=== PATIENT | female | born 1940 | race Caucasian/White ===

== ENCOUNTER 2016-06-03 15:33 | Emergency (ER) | payer OTHER ==
[~2016-06-03] VITALS: Ht 162.6 cm; Wt 77.1 kg
[~2016-06-03 15:33] MED LIST: HYDROCODONE-APA1 TA1 PO; HYDROXYUREA; LEVAQUIN 500 M500 M2 PO
[2016-06-03 16:31] LABS: ABSOLUTE NEUTROPHILS 6.9 thou/uL (1.4-8.2); BASOPHILS 0.2 % (0.0-2.0); EOSINOPHILS 0.8 % (0.0-3.0); HEMATOCRIT 35.8 % (37.0-47.0); LYMPHOCYTES 10.5 % (24.0-44.0); MCH 34.9 pg (26.0-34.0); MCHC 33.6 g/dL (28.0-37.0); MCV 103.9 fL (80.0-100.0); MONOCYTES 4.4 % (1.0-8.0); PLATELET COUNT 638 thou/uL (150-400); POLYS 84.1 % (36.0-66.0); RBC 3.45 mil/uL (4.20-5.00); RDW 19.3 % (10.5-14.5); WBC 8.3 thou/uL (4.0-11.0)
[2016-06-03 16:40] LABS: MANUAL DIFF NO
[2016-06-03 16:49] LABS: CALCIUM 9.6 mg/dL (8.5-10.1); POTASSIUM 3.4 mmol/L (3.5-5.1)
[2016-06-03] MEDS ORDERED: HYDROCHLOROTHIA25 M2 PO (16:49)
[2016-06-03] MEDS ORDERED: HYDREA 500 MG500 M1 PO (16:50)
[2016-06-03 16:54] LABS: ALBUMIN 3.8 g/dL (3.4-5.0); TOTAL BILIRUBIN 1.3 mg/dL (<0.1-1.0); TOTAL PROTEIN 6.7 g/dL (6.4-8.2)
[2016-06-03 17:29] LABS: ANISOCYTOSIS 2+; MACROCYTES 1+
[2016-06-03 17:30] LABS: LARGE PLATELETS OCCASIONAL
== END 2016-06-03 18:27 | disposition home or self-care (01) ==
LOC: ER 15:33
PROVIDERS: Emergency Medicine
DX: R10.11 Right upper quadrant pain (principal); D47.3 Essential (hemorrhagic) thrombocythemia; Z88.0 Allergy status to penicillin

== ENCOUNTER 2019-05-16 09:26 | Emergency (ER) | payer MEDICARE ==
[~2019-05-16] VITALS: Ht 162.6 cm; Wt 72.6 kg
[~2019-05-16 09:26] MED LIST changes: +HYDREA 500 MG500 M1 PO; +HYDROCHLOROTHIA25 M2 PO
[2019-05-16 10:20] LABS: ABSOLUTE NEUTROPHILS 4.7 thou/uL (1.4-8.2); EOSINOPHILS 1.6 % (0.0-3.0); HEMATOCRIT 38.3 % (37.0-47.0); HEMOGLOBIN 12.4 gm/dL (12.0-15.0); LYMPHOCYTES 18.6 % (24.0-44.0); MCH 35.3 pg (26.0-34.0); MCHC 32.4 g/dL (28.0-37.0); MCV 108.8 fL (80.0-100.0); MONOCYTES 5.9 % (1.0-8.0); PLATELET COUNT 518 thou/uL (150-400); POLYS 72.9 % (36.0-66.0); RBC 3.52 mil/uL (4.20-5.00); RDW 20.6 % (10.5-14.5); WBC 6.4 thou/uL (4.0-11.0)
[2019-05-16 10:23] LABS: CALCIUM 9.7 mg/dL (8.5-10.1); POTASSIUM 4.8 mmol/L (3.5-5.1)
[2019-05-16 11:09] LABS: LARGE PLATELETS OCCASIONAL; MACROCYTES 1+; POLYCHROMASIA OCCASIONAL
[2019-05-16 11:10] LABS: ANISOCYTOSIS 3+
[2019-05-16 11:52] VITALS: BP 142/63
[2019-05-16 11:57] LABS: URINE BILIRUBIN NEGATIVE (Negative); URINE BLOOD NEGATIVE (Negative); URINE CLARITY CLEAR; URINE COLOR YELLOW; URINE GLUCOSE-RANDOM* NEGATIVE (Negative); URINE KETONES NEGATIVE (Negative); URINE NITRITE-REFLEX NEGATIVE (Negative); URINE PROTEIN (DIPSTICK) NEGATIVE (Negative); URINE SPECIFIC GRAVITY 1.015 (1.005-1.035); URINE UROBILINOGEN 0.2 E.U./dl (0.2-1.0)
[2019-05-16 11:58] LABS: URINE LEUKOCYTES-REFLEX 2+ (Negative)
[2019-05-16] MEDS ORDERED: TYLENOL EXTRA500 MG PO (12:04)
[2019-05-16] MEDS ORDERED: NORFLEX100 MG PO (12:04)
[2019-05-16 12:07] LABS: BACTERIA-REFLEX >30 Many /HPF (None Seen); CASTS None Seen /LPF (None Seen); CRYSTALS None Seen /LPF (None Seen); SQUAMOUS 0-3 Few /LPF (0-3); URINE RBC None Seen /HPF (0-2); URINE WBC-REFLEX 6-15 Few /HPF (0-5)
== END 2019-05-16 12:36 | disposition home or self-care (01) ==
LOC: ER 09:26
PROVIDERS: Emergency Medicine
DX: S66.812A Strain of other specified muscles, fascia and tendons at wrist and hand level, left hand, initial encounter (principal); S66.811A Strain of other specified muscles, fascia and tendons at wrist and hand level, right hand, initial encounter; S40.012A Contusion of left shoulder, initial encounter; S00.83XA Contusion of other part of head, initial encounter; Z88.0 Allergy status to penicillin; W01.0XXA Fall on same level from slipping, tripping and stumbling without subsequent striking against object, initial encounter; Y93.89 Activity, other specified; Y92.89 Other specified places as the place of occurrence of the external cause; Y99.8 Other external cause status